=== PATIENT | female | born 1990 | race Caucasian/White ===

== ENCOUNTER → 2016-11-20 | Outpatient (CLI) | payer OTHER ==
[~2016-11-20] MED LIST: ALBU0.5N2 NEB; ALBUAER19 INH; AZIT500T26 PO; DPPI400 IM; EPP3/2 IM; FLUT1INH7 INH; MOME200A INH; OMEP20CA59 PO; OMEP20CA9 PO; PRED10TA PO; PRED20TA PO; PRED20TA2 PO; PRVIN525X NEB; SNG10 PO; SPRIN/30 INH; UMEC1INH INH; VNTHFA/IN INH; ZOLAIR IM; [UNRECOGNIZED DRUG - OTHER] INH
--- NOTE | 2016-11-20 15:30 | DIAGNOSTIC IMAGING REPORT ---
CHEST 2 VIEWS ROUTINE CLINICAL HISTORY: R05 [id number] dyspnea COMPARISON STUDY: 07/16/2016 FINDINGS: The bones soft tissues and hemidiaphragms are normal. The cardiomediastinal silhouette is normal. The lungs are clear. The pulmonary vasculature is normal. IMPRESSION: Negative chest. Electronically signed by: Ronni Dang M.D. 11/20/2016 3:28 PM Dictated Date/Time: 11/20/2016 3:28 PM
== END | disposition home or self-care (01) ==
LOC: C.RADBC 14:47
PROVIDERS: ATTEND Internal Medicine Pulmonary Disease
DX: R05 Cough (principal)

== ENCOUNTER 2016-12-04 11:11 | Emergency (ER) | payer OTHER ==
[~2016-12-04] VITALS: Ht 165.1 cm; Wt 87.5 kg
[~2016-12-04 11:11] MED LIST changes: -AZIT500T26 PO; -FLUT1INH7 INH; -OMEP20CA59 PO; -PRED20TA2 PO; -PRVIN525X NEB; -UMEC1INH INH; -VNTHFA/IN INH
[2016-12-04 11:14] VITALS: TEMP 36.7
[2016-12-04] MEDS ORDERED: METHYLPREDNISOLONE 125 MG VIAL IV STA (11:31)
[2016-12-04] MEDS ORDERED: SODIUM CHLORIDE 0.9% 1000ML 1,000 ML IV STA ×2 (11:31→14:17)
[2016-12-04] MEDS ORDERED: ALBUT/IPRATROP 3MG/0.5MG NEB 3 ML VIAL INH ONE (11:45)
--- NOTE | 2016-12-04 11:46 | EMERGENCY ROOM VISIT NOTE ---
History Report prepared by Titi: Penelope Corona Under the Supervision of: Dr. Jono Hitchcock D.O. First contact with patient: 11:20 Chief Complaint: RESPIRATORY PROBLEMS Stated Complaint: WHEEZING Nursing Triage Summary: c/o SOB and wheezing was seen at another hospital and still feels SOB pt has asthma History of Present Illness The patient is a 26 year old female who presents to the Emergency Room with complaints of persistent respiratory problems that began 2 days ago. The patient has a history of asthma. She notes that she was recently sick for two weeks and was put on Prednisone and Levaquin. Her illness seemed to clear up. She followed up with her PCP 2 days ago and was feeling well. Later that day, she began to have an asthma flare up. She has been using nebulizer treatments only temporary relief. This morning around 6AM, she went to the [facility] for evaluation. She was treated with oxygen, a nebulizer treatment, and a Solu-Medrol Injection. She had a chest x-ray as well. She was discharged home. The patient notes that she was still wheezing at the time of discharge. She used a nebulizer treatment about 3 hours ago at home without any relief. She was hospitalized at [facility] for an exacerbation of asthma in July 2016. Denies fevers, chills, nausea, vomiting, leg swelling or pain, or other complaints. She does not have a history of blood clots. She notes that Dr. Peck saw her 2 weeks ago and said that she had signs of a PE because she was having some chest pain. When the patient saw her PCP, they were not suspicious of a blood clot. The patient was set up for a stress test next week. She has not had any CT scans recently. Source of History: patient Onset: 2 days ago Position: other (respiratory) Timing: other (persistent) Associated Symptoms: No chills, No fevers, No nausea, No vomiting Note: Other symptoms: wheezing Review of Systems See HPI for pertinent positives & negatives. A total of 10 systems reviewed and were otherwise negative. Past Medical & Surgical Medical Problems: (1) Asthma Family History No pertinent family history stated. Social History Smoking Status: Never Smoker Marital Status: single Occupation Status: employed Current/Historical Medications Scheduled Azithromycin (Zithromax), 500 MG PO DAILY Fluticasone Furoate-Vilanterol (Breo Ellipta 200-25 Mcg/INH), 1 PUFF INH DAILY Medroxyprogesterone Acetate (Depo-Provera), 1 DOSE IM EVERY 6 WEEKS Omeprazole (Prilosec), 20 MG PO DAILY Prednisone (Prednisone Tab), 20 MG PO DAILY Umeclidinium [place] (Incruse Ellipta), 1 PUFF INH BID Scheduled PRN Albuterol Hfa (Ventolin Hfa), 2-4 PUFFS INH Q6H PRN for Shortness of Breath Albuterol Sulf (Albuterol Sulfate), 1 VIAL NEB Q6 PRN for Shortness of Breath Epinephrine (Epipen 2-Danny), 1 DOSE IM PRN PRN for ALLERGIC REACTIN Allergies Coded Allergies: No Known Allergies (Unverified , 09/25/15) Physical Exam Vital Signs Date Time Temp Pulse Resp B/P Pulse Ox O2 Delivery O2 Flow Rate FiO2 12/04/16 15:48 110 18 104/79 96 Room Air 12/04/16 15:16 112 18 114/70 99 Nebulizer 12/04/16 14:36 122 16 117/68 95 Room Air 12/04/16 14:01 126 16 119/80 96 Room Air 12/04/16 12:49 123 20 121/67 100 Room Air 12/04/16 12:11 115 12/04/16 12:03 112 18 91 Room Air 12/04/16 11:58 92 Room Air 12/04/16 11:58 92 Room Air 12/04/16 11:57 104 20 122/77 92 Room Air 12/04/16 11:14 36.7 120 20 109/75 93 Room Air Physical Exam GENERAL: Patient is awake, alert, somewhat anxious appearing. EYES: The conjunctivae are clear. The pupils are round and reactive. EARS, NOSE, MOUTH AND THROAT: Mucous membranes are dry. NECK: The neck is nontender and supple. RESPIRATORY: Lung sounds were diminished throughout. There were rales in the right upper lung field. Significant tachypnea and conversational dyspnea was appreciated. CARDIOVASCULAR: Tachycardic but regular. No definite murmur was noted. GASTROINTESTINAL: The abdomen is soft. Bowel sounds are present in all quadrants. Abdomen is nontender MUSCULOSKELETAL/EXTREMITIES: There is no evidence of gross deformity full range of motion is noted in the hips and shoulders SKIN: There is no obvious evidence of any rash. There are no petechiae, pallor or cyanosis noted. NEUROLOGIC: Patient is awake alert and oriented x3 strength is symmetric patellar reflexes are 2+ bilaterally Medical Decision & Procedures ER Provider Diagnostic Interpretation: Radiology results as stated below per my review and radiologist interpretation: CHEST ONE VIEW PORTABLE CLINICAL HISTORY: Respiratory distress. COMPARISON STUDY: 11/20/2016 FINDINGS: The cardiac and mediastinal contours are normal. There is no evidence of focal pulmonary consolidation. There is no evidence of failure. No pleural effusions are visualized.[ IMPRESSION: No active disease in the chest. Electronically signed by: Kishore Carroll M.D. 12/04/2016 12:14 PM Dictated Date/Time: 12/04/2016 12:14 PM CHEST CTA for PULMONARY ARTERIES CT DOSE: 336.50 mGy.cm HISTORY: Chest pain dyspnea TECHNIQUE: Multiaxial CT images of the chest were performed following the intravenous administration of contrast to evaluate the pulmonary arteries. Maximal intensity projection images were also obtained. COMPARISON STUDY: 01/25/2015 FINDINGS: There is a normal caliber thoracic aorta with no evidence for dissection. There is no evidence for pulmonary embolus. No pleural effusions. No pneumothorax. The liver and spleen are unremarkable. No mediastinal or hilar lymphadenopathy. The central airways are patent. The lungs demonstrate scattered interstitial infiltrative changes throughout of the lower and right middle lobe regions. No well-defined consolidative infiltrates. Pulmonary apices are considered clear. IMPRESSION: 1. No evidence for pulmonary embolus. 2. scattered small parenchymal interstitial infiltrates and slight peribronchial thickening Electronically signed by: Ronni Dang M.D. 12/04/2016 3:03 PM Dictated Date/Time: 12/04/2016 3:00 PM Laboratory Results 12/04/16 11:40 Red Blood Count 5.00, Mean Corpuscular Volume 89.2, Mean Corpuscular Hemoglobin 31.2, Mean Corpuscular Hemoglobin Concent 35.0, Mean Platelet Volume 12.1, Neutrophils (%) (Auto) 93.0, Lymphocytes (%) (Auto) 5.8, Monocytes (%) (Auto) 0.7, Eosinophils (%) (Auto) 0.2, Basophils (%) (Auto) 0.1, Neutrophils # (Auto) 8.79, Lymphocytes # (Auto) 0.55, Monocytes # (Auto) 0.07, Eosinophils # (Auto) 0.02, Basophils # (Auto) 0.01 12/04/16 11:40 Test 12/04/16 11:40 12/04/16 11:56 12/04/16 12:10 White Blood Count 9.46 K/uL (4.8-10.8) Red Blood Count 5.00 M/uL (4.2-5.4) Hemoglobin 15.6 g/dL (12.0-16.0) Hematocrit 44.6 % (37-47) Mean Corpuscular Volume 89.2 fL (80-100) Mean Corpuscular Hemoglobin 31.2 pg (25-34) Mean Corpuscular Hemoglobin Concent 35.0 g/dl (32-36) Platelet Count 207 K/uL (130-400) Mean Platelet Volume 12.1 fL (7.4-10.4) Neutrophils (%) (Auto) 93.0 % Lymphocytes (%) (Auto) 5.8 % Monocytes (%) (Auto) 0.7 % Eosinophils (%) (Auto) 0.2 % Basophils (%) (Auto) 0.1 % Neutrophils # (Auto) 8.79 K/uL (1.4-6.5) Lymphocytes # (Auto) 0.55 K/uL (1.2-3.4) Monocytes # (Auto) 0.07 K/uL (0.11-0.59) Eosinophils # (Auto) 0.02 K/uL (0-0.5) Basophils # (Auto) 0.01 K/uL (0-0.2) RDW Standard Deviation 40.3 fL (36.4-46.3) RDW Coefficient of Variation 12.6 % (11.5-14.5) Immature Granulocyte % (Auto) 0.2 % Immature Granulocyte # (Auto) 0.02 K/uL (0.00-0.02) Anion Gap 11.0 mmol/L (3-11) Est Creatinine Clear Calc Drug Dose 137.0 ml/min Estimated GFR () 139.9 Estimated GFR (Non- 120.7 BUN/Creatinine Ratio 14.6 (10-20) Calcium Level 9.3 mg/dl (8.5-10.1) Total Bilirubin 1.0 mg/dl (0.2-1) Aspartate Amino Transf (AST/SGOT) 16 U/L (15-37) Alanine Aminotransferase (ALT/SGPT) 27 U/L (12-78) Alkaline Phosphatase 79 U/L (45-117) Total Protein 7.8 gm/dl (6.4-8.2) Albumin 4.2 gm/dl (3.4-5.0) Globulin 3.6 gm/dl (2.5-4.0) Albumin/Globulin Ratio 1.2 (0.9-2) Human Chorionic Gonadotropin, Qual NEG (NEG) Urine Color DK YELLOW Urine Appearance CLEAR (CLEAR) Urine pH 5.0 (4.5-7.5) Urine Specific [place] 1.028 (1.000-1.030) Urine Protein TRACE (NEG) Urine Glucose (UA) NEG (NEG) Urine Ketones 4+ (NEG) Urine Occult Blood NEG (NEG) Urine Nitrite NEG (NEG) Urine Bilirubin NEG (NEG) Urine Urobilinogen NEG (NEG) Urine Leukocyte Esterase NEG (NEG) Urine WBC (Auto) 1-5 /hpf (0-5) Urine RBC (Auto) 0-4 /hpf (0-4) Urine Hyaline Casts (Auto) 5-10 /lpf (0-5) Urine Epithelial Cells (Auto) >30 /lpf (0-5) Urine Bacteria (Auto) 1+ (NEG) Venous Blood pH 7.36 (7.36-7.41) Venous Blood Partial Pressure CO2 40 mmHg (38.0-50.0) Venous Blood Partial Pressure O2 27 mmHg Venous Blood HCO3 22 mmol/L Venous Blood Oxygen Saturation < 60.0 % Venous Blood Base Excess -3.2 mmol/L Laboratory results per my review. Medications Administered Medications (Trade) Dose Ordered Sig/Joi Route Start Time Stop Time Status Last Admin Dose Admin Sodium Chloride (Nss 1000ml) 1,000 ml @ 999 mls/hr Q1H1M STAT IV 12/04/16 11:31 12/04/16 12:31 DC 12/04/16 11:52 999 MLS/HR Methylprednisolone Sodium Succinate (Solu-Medrol IV) 125 mg NOW STAT IV 12/04/16 11:31 12/04/16 11:33 DC 12/04/16 11:52 125 MG Albuterol/ Ipratropium 12 ml 12 ml ONE ONCE INH 12/04/16 11:45 12/04/16 11:46 DC 12/04/16 12:02 12 ML Sodium Chloride (Nss 1000ml) 1,000 ml @ 999 mls/hr Q1H1M STAT IV 12/04/16 14:17 12/04/16 15:17 DC 12/04/16 14:17 999 MLS/HR Albuterol/ Ipratropium (Duoneb) 3 ml NOW STAT INH 12/04/16 14:23 12/04/16 14:24 DC 12/04/16 15:08 3 ML Azithromycin (Zithromax Tab) 500 mg NOW STAT PO 12/04/16 15:07 12/04/16 15:09 DC 12/04/16 15:12 500 MG ED Course 1130: The patient was evaluated in room A2. A complete history and physical examination were performed. 1131: Ordered Solu-Medrol 125 mg IV, NSS 1000 ml @ 999 mls/hr IV. 1145: Ordered DuoNeb 12 ml INH. 1204: I reassessed the patient. 1417: Ordered NSS 1000 ml @ 999 mls/hr IV. 1421: I reassessed the patient. 1423: Ordered DuoNeb 3 ml INH. 1507: Ordered Azithromycin 500 mg PO. 1530: Upon reevaluation, the patient is feeling better. I discussed the results and treatment plan with the patient. She verbalized agreement of the treatment plan. The patient was discharged home. Medical Decision Prior records/ancillary studies reviewed. Triage Nursing notes reviewed. The patient's history was concerning for respiratory difficulties. Differential diagnosis: Etiologies such as infections, reactive airway disease, pneumonia, pneumothorax , COPD, CHF, cardiac ischemia, pulmonary embolism, musculoskeletal, gastrointestinal, as well as others were entertained. The patient is a 26-year-old female who presented to emergency department for evaluation of shortness of breath. The patient has a history of asthma and her physical exam appeared to be consistent with an asthma exacerbation. The patient was treated with bronchodilator therapy IV fluids and IV steroids in the emergency department. She was reevaluated multiple times. She was given an hour-long nebulizer treatment. She was further treated with another DuoNeb treatment. She continued to have some degree of tachycardia which I feel could be related to dehydration but because the patient states that she was felt to have need of a pulmonary embolism workup by her primary care physician a CT the chest was obtained. The CT did not reveal signs of acute pulmonary embolism but did reveal questionable areas of pulmonary infiltrate. For this reason she was started on antibiotic. I discussed the patient's laboratory and radiographic studies with her. She was reevaluated multiple times. On subsequent reevaluation her condition significantly improved. She was encouraged to rest and avoid any strenuous activity. She was encouraged to continue all medications as prescribed. She was also encouraged to return to the emergency department immediately if symptoms change worsen or if the need arises. Impression Primary Impression: Acute asthma exacerbation Additional Impression: Acute bronchitis Scribe Attestation The scribe's documentation has been prepared under my direction and personally reviewed by me in its entirety. I confirm that the note above accurately reflects all work, treatment, procedures, and medical decision making performed by me. Departure Information Dispostion Home / Self-Care Prescriptions Prednisone (Prednisone Tab) 20 Mg Tab 20 MG PO DAILY, #10 TAB start this medication on 12/05 Prov: Jono Hitchcock, DO 12/04/16 Omeprazole (Prilosec) 20 Mg Capcr 20 MG PO DAILY, #30 CAP Prov: Jono Hitchcock, DO 12/04/16 Azithromycin (Zithromax) 500 Mg Tab 500 MG PO DAILY, #4 TAB Start this medication on 12/05 Prov: Jono Hitchcock, DO 12/04/16 Referrals Jozef Perera M.D. (PCP) Patient Instructions Asthma Dc, Bronchitis Acute, [facility] Additional Instructions Rest and continue all medications as prescribed. Call your primary care physician to schedule a follow-up appointment. Continue all medications as prescribed. Return to the emergency department immediately if symptoms change worsen or the need arises. Problem Qualifiers Primary Impression: Acute asthma exacerbation Asthma severity: unspecified severity Qualified Codes: J45.901 - Unspecified asthma with (acute) exacerbation Additional Impression: Acute bronchitis Bronchitis organism: unspecified organism Qualified Codes: J20.9 - Acute bronchitis, unspecified
[2016-12-04 11:55] VITALS: Ht 165.1 cm; Wt 87.5 kg
[2016-12-04 11:55] LABS: BASO % 0.1 %; BASO ABS # 0.01 K/uL (0-0.2); COMPLETE YES; EOS % 0.2 %; HEMATOCRIT 44.6 % (37-47); IG% 0.2 %; LYMPH % 5.8 %; LYMPH ABS # 0.55 K/uL (1.2-3.4); MEAN CELL VOLUME 89.2 fL (80-100); MEAN CORPUSCULAR HEMOGLOBIN 31.2 pg (25-34); MEAN PLATELET VOLUME 12.1 fL (7.4-10.4); MONO % 0.7 %; PLATELET COUNT 207 K/uL (130-400); WHITE BLOOD COUNT 9.46 K/uL (4.8-10.8)
[2016-12-04] MEDS ORDERED: VNTHFA/IN INH (11:55)
[2016-12-04] MEDS ORDERED: PRVIN525X NEB (11:55)
[2016-12-04] MEDS ORDERED: FLUT1INH7 INH (11:56)
[2016-12-04] MEDS ORDERED: UMEC1INH INH (11:56)
[2016-12-04 11:58] VITALS: O2SAT 92
[2016-12-04 12:03] VITALS: PULSE 112; O2SAT 91
[2016-12-04 12:11] LABS: BUN/CREATININE RATIO 14.6 (10-20); CALCIUM 9.3 mg/dl (8.5-10.1); CREATININE 0.68 mg/dl (0.60-1.20); POTASSIUM 3.7 mmol/L (3.5-5.1)
[2016-12-04 12:14] LABS: ALB/GLOB RATIO 1.2 (0.9-2)
--- NOTE | 2016-12-04 12:15 | DIAGNOSTIC IMAGING REPORT ---
CHEST ONE VIEW PORTABLE CLINICAL HISTORY: Respiratory distress. COMPARISON STUDY: 11/20/2016 FINDINGS: The cardiac and mediastinal contours are normal. There is no evidence of focal pulmonary consolidation. There is no evidence of failure. No pleural effusions are visualized.[ IMPRESSION: No active disease in the chest. Electronically signed by: Kishore Carroll M.D. 12/04/2016 12:14 PM Dictated Date/Time: 12/04/2016 12:14 PM
[2016-12-04 12:21] LABS: PREG INTERNAL NEGATIVE QC NEG CLEAR BACKGROUND; PREG INTERNAL POSITIVE QC POS CONTROL LINE
[2016-12-04 12:31] LABS: URINE APPEARANCE CLEAR (CLEAR); URINE BILIRUBIN NEG (NEG); URINE COLOR DK YELLOW; URINE EPITHELIAL CELL AUTO >30 /lpf (0-5); URINE NITRITE NEG (NEG); URINE SPECIFIC GRAVITY 1.028 (1.000-1.030); UROBILINOGEN NEG (NEG)
[2016-12-04 12:40] LABS: MANUAL MICROSCOPIC REQUIRED? NO; REVIEW REQ? NO
[2016-12-04 12:56] LABS: VEN BLOOD GAS BASE EXCESS -3.2 mmol/L; VENOUS BLOOD GAS PCO2 40 mmHg (38.0-50.0); VENOUS BLOOD GAS PO2 27 mmHg
[2016-12-04 12:59] LABS: VEN BLD GAS O2 SATURATION < 60.0 %
[2016-12-04] MEDS ORDERED: ALBUT/IPRATROP 3MG/0.5MG NEB 3 ML VIAL INH STA (14:23)
[2016-12-04] MEDS ORDERED: OPTIRAY 320 IV PRN (14:45)
--- NOTE | 2016-12-04 15:04 | DIAGNOSTIC IMAGING REPORT ---
CHEST CTA for PULMONARY ARTERIES CT DOSE: 336.50 mGy.cm HISTORY: Chest pain dyspnea TECHNIQUE: Multiaxial CT images of the chest were performed following the intravenous administration of contrast to evaluate the pulmonary arteries. Maximal intensity projection images were also obtained. COMPARISON STUDY: 01/25/2015 FINDINGS: There is a normal caliber thoracic aorta with no evidence for dissection. There is no evidence for pulmonary embolus. No pleural effusions. No pneumothorax. The liver and spleen are unremarkable. No mediastinal or hilar lymphadenopathy. The central airways are patent. The lungs demonstrate scattered interstitial infiltrative changes throughout of the lower and right middle lobe regions. No well-defined consolidative infiltrates. Pulmonary apices are considered clear. IMPRESSION: 1. No evidence for pulmonary embolus. 2. scattered small parenchymal interstitial infiltrates and slight peribronchial thickening Electronically signed by: Ronni Dang M.D. 12/04/2016 3:03 PM Dictated Date/Time: 12/04/2016 3:00 PM
[2016-12-04] MEDS ORDERED: AZITHROMYCIN 250 MG TAB PO STA (15:07)
[2016-12-04] MEDS ORDERED: AZIT500T26 PO (15:43)
[2016-12-04] MEDS ORDERED: OMEP20CA59 PO (15:44)
[2016-12-04] MEDS ORDERED: PRED20TA2 PO (15:44)
[2016-12-04 15:48] VITALS: BP 104/79; PULSE 110; O2SAT 96
== END 2016-12-04 16:08 | disposition home or self-care (01) ==
LOC: C.EDB 11:14 → C.EDA 16:08
DX: J45.901 Unspecified asthma with (acute) exacerbation (principal); J20.9 Acute bronchitis, unspecified; Z79.899 Other long term (current) drug therapy